=== PATIENT | female | born 1980 ===

== ENCOUNTER 2017-10-16 00:26 | Inpatient (IN) | payer MEDICAID ==
[2017-10-16 00:49] VITALS: BMI 25.2
[2017-10-16] MEDS ORDERED: Phenaphthazine-PH Test Paper VI ONE (01:17)
[2017-10-16] MEDS ORDERED: Lactated Ringer's 1,000 ML IV SCH (02:15)
[2017-10-16] MEDS: Lactated Ringer's 1,000 ML IV SCH ×2 (03:00→04:00)
[2017-10-16 03:29] LABS: BASO % 0.4 % (0.0-2.0); EOS # 0.1 K/uL (0.0-0.7); HEMATOCRIT 34.3 % (34.0-47.0); LYMPH # 1.6 K/uL (1.0-4.3); LYMPH % 18.9 % (20.0-40.0); MEAN CELL VOLUME 86.2 fl (81.0-99.0); MEAN CORPUSCULAR HEMOGLOBIN 29.9 pg (27.0-31.0); MEAN CORPUSCULAR HGB CONC 34.7 g/dL (33.0-37.0); MEAN PLATELET VOLUME 8.2 fl (7.2-11.7); MONO # 0.6 K/uL (0.0-0.8); MONO % 6.8 % (0.0-10.0); NEUT # 6.3 K/uL (1.8-7.0); NEUT % 72.9 % (50.0-75.0); WHITE BLOOD COUNT 8.6 K/uL (4.8-10.8)
[2017-10-16] MEDS ORDERED: Fentanyl/Bupivacaine HCl 0 ML EPI ONE (04:02)
[2017-10-16] MEDS ORDERED: Oxytocin 30 UNITS in Sodium Chloride 0.9% 500 ML IV ONE (06:43)
[2017-10-16 07:32] VITALS: RESP 18
[2017-10-16] MEDS ORDERED: Oxycodone/Acetaminophen 5/325 mg Tab PO PRN ×2 (09:55)
[2017-10-16] MEDS: Benzocaine/Menthol SPRAY TOP PRN (17:02)
[2017-10-17 06:15] LABS: BASO % 0.5 % (0.0-2.0); EOS # 0.1 K/uL (0.0-0.7); EOS % 1.1 % (0.0-4.0); HEMATOCRIT 25.6 % (34.0-47.0); LYMPH # 1.9 K/uL (1.0-4.3); LYMPH % 22.1 % (20.0-40.0); MEAN CELL VOLUME 86.5 fl (81.0-99.0); MEAN CORPUSCULAR HEMOGLOBIN 30.1 pg (27.0-31.0); MEAN CORPUSCULAR HGB CONC 34.8 g/dL (33.0-37.0); MEAN PLATELET VOLUME 8.1 fl (7.2-11.7); MONO # 0.7 K/uL (0.0-0.8); MONO % 7.8 % (0.0-10.0); NEUT # 5.9 K/uL (1.8-7.0); NEUT % 68.5 % (50.0-75.0); NRBC % 0.1 % (0.0-0.0); WHITE BLOOD COUNT 8.6 K/uL (4.8-10.8)
--- NOTE | 2017-10-17 10:17 | OBPPN ---
Datetime: 10/17/2017 07:24 PP Pain Prov: Within normal limits PP Nausea Prov: Denies PP Flatus Prov: Yes PP BM Prov: No PP Breasts Prov: Normal PP Heart Prov: Normal PP Lungs Prov: Normal PP Abdomen/Uterus Prov: Normal PP Lochia Prov: Normal PP Vulva/Perineum Prov: Normal PP CVA Tenderness Prov: Not Done PP Extremities Prov: Normal PP C/S Incision Prov: Not Applicable PP Progress Prov: Normal PP Impression Prov: Normal progression PP Plan Prov: Continue present management PP Progress Note Prov: S: pt seen and examined bedside this AM. by bedside. PPD1, s/p NVD. P t endorsed acid reflux last night, given Pepcid and her acidity resolved. Pt states that she only has mild pain when walking. Ambulating around the room without difficulties. Breast and bottle feeding b cliff. Tolerating PO diet and lochia is like menses. +/- gas, BM. Denies fever, chills, headache, chest pain, dyspnea, palpitations, n/v/d/c and remains afebrile. O: VS stable GEN: NAD Cardio: S1S2 no M/G/R Resp: vesicular breathing b/l Abdomen: Mild tenderness to palpation. BS+. Fundus is firm, at the umbilicus Neuro: AAO x 3 Ext: no edema noted, no calf tenderness Assessment/Plan: 37 YO delivered @ 39.5 wks to a baby girl via NVD on 10/16/17. Doing well PPD 1. OOB with caution SCD's for DVT prophylaxis, ambulating Percocet 5/325mg 1-2 tablets po q6 for mod/sev pain Ibuprofen 600mg 1 tab Encourage and ambulation Senakot 17.2mg PO qHS Will continue PP management Samantha Vance, PGY I OB attending addendum: Patient seen and examined by me. No complaints. Agree with above assessment and plan. Vital Signs Provider PP: Reviewed; Within Normal Limits
[2017-10-18] MEDS: Benzocaine/Menthol SPRAY TOP PRN (09:04)
--- NOTE | 2017-10-18 11:20 | OBDCSUM ---
Datetime: 10/18/2017 07:12 Discharged to, Provider: Home Follow up at, Provider: [facility] Instr Activity: Normal activity; May be up to bathroom; May be up for meals; May Shower Disch Instr Diet: Regular Discharge Instructions, Provider: Routine instructions given Discharge Diagnosis, Provider: Term Delivered Discharge Time: 10/18/2017 01:00 Contraception discussed, Prov: Yes Disch Activity Restrictions: No exercising; No lifting; Minimize stair-climbing; No sexual activity; Nothing in vagina - [place], tampons, douche Discharge Comment, Provider: 37 YO delivered @ 39.5 wks to a baby girl via NVD on 10/16/17. Uncomplicated course. Lochia is minimal, pt is ambulating, tolerating PO diet, and remains afebrile. 1. Encourage 2. PNV 1 tab po q/day 3. Ibuprofen for pain. Iron and Senokot for constipation. 4. Ambulatory with caution, nothing per vagina, no heavy lifting, avoid stairs, if excessive bleed ing or fever without relief from Tylenol go to ED 5. F/U at [place] for PP visit in 6 weeks Baby in 3-4 days Samantha Vance, PGY I Contraception after Delivery: Undecided
--- NOTE | 2017-10-18 11:20 | OBPPN ---
Datetime: 10/18/2017 07:11 PP Pain Prov: Within normal limits PP Nausea Prov: Denies PP Flatus Prov: Yes PP BM Prov: No PP Breasts Prov: Normal PP Heart Prov: Normal PP Lungs Prov: Normal PP Abdomen/Uterus Prov: Normal PP Lochia Prov: Normal PP Vulva/Perineum Prov: Normal PP CVA Tenderness Prov: Not Done PP Extremities Prov: Normal PP C/S Incision Prov: Not Applicable PP Progress Prov: Normal PP Impression Prov: Normal progression PP Plan Prov: Continue present management; Discharge PP Progress Note Prov: S: pt seen and examined bedside this AM. PPD2, s/p NVD. No acute overnight ev ents. Pt states that she is ambulating w/o pain. Breast feeding baby. Tolerating PO diet and lochia i s like menses. +/- gas, BM. Denies fever, chills, headache, chest pain, dyspnea, palpitations, n/v/d/ c and remains afebrile. O: VS stable GEN: NAD Cardio: S1S2 no M/G/R Resp: vesicular breathing b/l Abdomen: NT to palpation. BS+. Fundus is firm, at the umbilicus Neuro: AAO x 3 Ext: no edema noted, no calf tenderness Assessment/Plan: 37 YO delivered @ 39.5 wks to a baby girl via NVD on 10/16/17. Doing well PPD 2. OOB with caution SCD's for DVT prophylaxis, ambulating Percocet 5/325mg 1-2 tablets po q6 for mod/sev pain Ibuprofen 600mg 1 tab Encourage and ambulation Senakot 17.2mg PO qHS Will d/c home day, please follow up in [facility] in 6 wks for PP visit Please visit MD for baby in 3-4 days Samantha Vance, PGY I Addendum by Dr. Pierson: Patient evaluated independently and I agree with the above. Patient to be d ischarge home, discharge instructions reviewed Vital Signs Provider PP: Reviewed; Within Normal Limits
[2017-10-18 17:12] VITALS: BP 115/73; PULSE 77; TEMP 97.9; O2SAT 98
== END 2017-10-18 13:10 | disposition home or self-care (01) | DRG 372 ==
LOC: H.EROB2 00:26 → H.L&D 02:11 → H.OB/GYN 13:00
PROVIDERS: ADMIT Obstetrics & Gynecology Gynecology; ATTEND Obstetrics & Gynecology Gynecology
PROC: 10E0XZZ Delivery of Products of Conception, External Approach (ICD-10-PCS; principal; 2017-10-16)
PROC: 4A1HXCZ Monitoring of Products of Conception, Cardiac Rate, External Approach (ICD-10-PCS; 2017-10-16)
DX: O99.42 Diseases of the circulatory system complicating childbirth (principal); R03.0 Elevated blood-pressure reading, without diagnosis of hypertension; K21.9 Gastro-esophageal reflux disease without esophagitis; Z37.0 Single live birth; O99.62 Diseases of the digestive system complicating childbirth; Z3A.39 39 weeks gestation of pregnancy